=== PATIENT | male | born 1965 | race Caucasian/White ===

== ENCOUNTER → 2016-07-29 | Day surgery (SDC) | payer OTHER ==
[~2016-07-29] VITALS: Ht 170.2 cm; Wt 94.8 kg
[~2016-07-29] MED LIST: *morphine SULFATE 8 MG/ML PERIprocedure ONLY ONE; ACETAMINOPHEN 1000 MG/100 ML VIAL IV ONE; ACETAMINOPHEN 1000 MG/100 ML VIAL IV SCH; ASPI325T PO; ATOR40TA16 PO; BUPIVACAINE LIPOSOME PF 1.3% 20 ML VIAL ONE; BUPIVACAINE/EPINEPHRINE 0.25% PF 30 ML VIAL ONE; DO NOT ADM ANY ANTICOAGULANT DRUGS XX PRN; INSULIN HUMAN REGULAR 1,000 UNITS/10 ML VIAL SQ PRN; KETOROLAC TROMETHAMINE 30 MG/ML (IVP) VIAL IV PUSH ONE; LACTATED RINGER'S 1000 ML INJ 1,000 ML ONE; LACTATED RINGER'S 1000 ML IV SCH; METOPROLOL TARTRATE 25 MG TAB PO PRN; MIDAZOLAM HCL 5 MG/5 ML VIAL ONE; MORPHINE SULFATE 4 MG/ML INJ IV PRN; NEOSTIGMINE 3 MG/3 ML SYR IV ONE; NEXI20CA PO; ONDANSETRON HCL 4 MG/2 ML VIAL IV PRN; ONDANSETRON HCL 4 MG/2 ML VIAL IV PUSH ONE; PHENYLEPH/NS 1000 MCG/10 ML SYR IV ONE; PROPOFOL 200 MG/20 ML AMP IV ONE; SODIUM CHLORID 0.9% 500 ML IV SCH; SODIUM CHLORIDE 5 ML FLUSH BID IVF SCH; SODIUM CHLORIDE 5 ML FLUSH PRN IVF; ceFAZolin 2 GM PREMIX 50 ML IV SCH; ceFAZolin 2 GM PREMIX 50 ML ONE; fentaNYL CITRATE 250 MCG/5 ML AMP ONE; oxyCODONE/ACETAMINOPHEN 5 MG/325 MG TAB PO PRN
[2016-07-29 09:31] VITALS: BP 113/80; PULSE 68; RESP 20; TEMP 97.5; O2SAT 98
--- NOTE | 2016-07-29 15:30 | PD.OP ---
cc: Abhay Carlton MD Operative Report Date of Surgery: Jul 29, 2016 Preoperative Diagnosis: Umbilical hernia Postoperative Diagnosis: Umbilical hernia Procedure: Laparoscopic repair of umbilical hernia Anesthesia: Gen. endotracheal Surgeon: Abhay Carlton Ordering Box Operator(s): Dominique Coon CFA Operation and Findings: Operative findings: The patient was found to have a 3 cm umbilical hernia with incarcerated omentum within it. No viscera were involved. No other abnormalities were noted. Operative procedure: The patient was brought to the operating room after having undergone placement of a TA P block in preop holding. After satisfactory general endotracheal anesthesia was obtained, the abdomen was prepped and draped in the usual sterile fashion. An [place] drape was placed over the abdomen. 0.25% Marcaine with epinephrine was used after the skin for local anesthesia. A left subcostal incision was made and using blunt dissection the peritoneal cavity was entered with care being taken not to injure the underlying viscera. Insufflation could not be achieved at that site and under direct visualization a 5 mm port was placed in the upper midline. Once the abdomen was distended to 15 mmHg using carbon dioxide, the camera was reinserted into the peritoneal cavity visceral injury inspected for none being identified. The GelPort was then placed within the perineal cavity without problem and the balloon engaged. A 5 port was placed in the right upper right lower and left lower quadrant all under direct visualization. The omentum was grasped and amputated from the hernia sac using the harmonic scalpel. The fat attached to the peritoneal surface was taken down with the Harmonic scalpel. It should be noted the fatty tissue was quite extensive and required quite a bit of dissection. There was minimal blood loss, however it was extensive dissection. Once the fatty tissue been cleaned the 15 x [address] mesh was selected for placement within the peritoneal cavity. The mesh was rolled and then placed within the peritoneal cavity through the 12 mm port. It was unfurled and then the insufflation tubing was brought through a separate small incision just above the umbilicus using a [place] suture passer. The mesh backbone was then filled with air and the mesh brought into close approximation to the anterior abdominal wall where was affixed with a hemostat and the level of the skin. As rotated in the correct position. Using pro- tacks the mesh was secured into place and all 4 quadrants after which the mesh backbone was removed. The remainder of the mesh was then tacked circumferentially with remainder of the pro-tacks as well as absorb attacks. The tacks were continued in an extensive double crown fashion to achieve adequate fixation against the abdominal wall without any areas of ballooning down. Hemostasis was checked for and found be satisfactory. The mesh repair was checked once again and the hernia was seen to be well covered as was the diastases recti. Hemostasis was checked for again found be satisfactory. The common dioxide was vented as completely as possible the atmosphere, the ports were removed and the 12 mm fascial defect closed with interrupted 0 Vicryl sutures. Skin was closed with interrupted 4-0 Monocryl subcuticular stitches. Steri-Strips were applied as was an abdominal binder. The patient was then awakened and taken from the operating room, in satisfactory condition having tolerated the procedure without problem. Estimated blood loss was less than 15 mL's. He has been, sponge, needle counts were reported as being correct 2 at the end of the procedure. Abhay Carlton MD Jul 29, 2016 15:30
[2016-07-29 17:00] VITALS: BP 138/84; PULSE 76; RESP 18; TEMP 97.6; O2SAT 96
== END | disposition home or self-care (01) ==
LOC: HSDC 08:25
PROVIDERS: ATTEND Surgery
DX: K42.9 Umbilical hernia without obstruction or gangrene (principal); E78.5 Hyperlipidemia, unspecified
CPT/HCPCS: 00752; 49652; 64488; C1781; C9290; J0690; J1885; J2250; J2270; J2370; J2405; J2710; J3010; J0131; J7120